=== PATIENT | male | born 1955 | race Caucasian/White ===

== ENCOUNTER 2018-04-07 10:36 | Emergency (ER) | payer OTHER ==
[~2018-04-07] VITALS: Ht 172.7 cm; Wt 85.7 kg
[~2018-04-07 10:36] MED LIST: ADDERALL 30 MG30 MG PO; FLEXERIL PO; IBUPROFEN 200200 M1 PO; IBUPROFEN 600600 M1 PO; KEFLEX500 M1 PO; MEDROL DOSPAK21 TAB PO; MEDROLDOSEPACK PO; NAPROSYN500 M1 PO; NOHOMEMEDICATIONS; NORCO 5-325 TA1 EACH PO; NORFLEX100 MG PO; PREDNISONE 20 M20 M1 PO; PREDNISONE 20 M20 MG PO; TRAMADOL 50 MG50 MG PO; TYLENOL325 MG PO; ULTRAM 50MG TAB50 MG PO; VALIUM2 MG PO; ZOFRAN4 MG PO
[2018-04-07] MEDS ORDERED: ROBAXIN 750 MG750 M1 PO (11:59)
[2018-04-07] MEDS ORDERED: ULTRAM 50MG TAB50 MG PO (11:59)
[2018-04-07 12:14] VITALS: BP 143/67
== END 2018-04-07 12:16 | disposition home or self-care (01) ==
LOC: ER 10:36
DX: M54.30 Sciatica, unspecified side (principal); G43.909 Migraine, unspecified, not intractable, without status migrainosus; Z90.49 Acquired absence of other specified parts of digestive tract

== ENCOUNTER → 2018-11-17 | Outpatient (CLI) | payer BC, OTHER ==
[~2018-11-17] MED LIST changes: +ROBAXIN 750 MG750 M1 PO
== END ==
LOC: MRI 11-03 15:41
DX: M47.817 Spondylosis without myelopathy or radiculopathy, lumbosacral region (principal); M51.27 Other intervertebral disc displacement, lumbosacral region; M24.28 Disorder of ligament, vertebrae; R60.0 Localized edema

== ENCOUNTER 2021-03-12 17:45 | Emergency (ER) | payer BC, OTHER ==
[~2021-03-12] VITALS: Ht 172.7 cm; Wt 80.7 kg
[2021-03-12 17:50] VITALS: BP 159/96
[2021-03-12] MEDS ORDERED: PREDNISONE 10 M10 M1 PO (18:04)
[2021-03-12] MEDS ORDERED: FLEXERIL PO (18:04)
[2021-03-12] MEDS ORDERED: NORCO5 PO (18:04)
== END 2021-03-12 18:32 | disposition home or self-care (01) ==
LOC: ER 17:45
DX: M54.42 Lumbago with sciatica, left side (principal); G43.909 Migraine, unspecified, not intractable, without status migrainosus; Z90.49 Acquired absence of other specified parts of digestive tract; Z79.899 Other long term (current) drug therapy